=== PATIENT | female | born 1975 | race Caucasian/White ===

== ENCOUNTER → 2024-01-07 07:44 | Outpatient (REF) | payer BC, SELFPAY | LOC: HWRAD 07:44 | PROVIDERS: ATTENDING PHYSICIAN Internal Medicine | DX: M54.16 Radiculopathy, lumbar region (principal) | CPT/HCPCS: 72110 ==

== ENCOUNTER → 2024-01-21 07:08 | Outpatient (REF) | payer BC, SELFPAY | LOC: HWRAD 07:08 | PROVIDERS: ATTENDING PHYSICIAN Nurse Practitioner; FAMILY PHYSICIAN Internal Medicine | DX: E06.9 Thyroiditis, unspecified (principal) | CPT/HCPCS: 76536 ==

== ENCOUNTER → 2024-06-21 10:33 | Outpatient (REF) | payer BC, SELFPAY | LOC: HWRAD 10:33 | PROVIDERS: ATTENDING PHYSICIAN Hospitalist | DX: J06.9 Acute upper respiratory infection, unspecified (principal); S69.91XD Unspecified injury of right wrist, hand and finger(s), subsequent encounter | CPT/HCPCS: 71046; 73130 ==